=== PATIENT | female | born 1985 | race Caucasian/White ===

== ENCOUNTER → 2018-03-02 | Outpatient (CLI) | payer OTHER ==
--- NOTE | 2018-03-14 15:49 | EKG ---
[facility] [address] [place] [address] Test Date: 2018-03-02 Test Time: 13:32:57 Pat Name: SAMIR VICENTE Department: Room: Gender: Rail Car Driver: : 1985 Requested By: JACQUELINE SILVA Order Number: [id number] Reading MD: Constantino Avalos Interpretive Statements Patient was in sinus rhythm with heart rate ranging from 61 bpm to 150 bpm with an average of 93 bpm. Very few supraventricular and ventricular ectopic beats noted accounting to less than 1% of total number of beats. No significant arrhythmias were seen. CONCLUSIONS Holter monitor did not show any significant arrhythmias. Electronically Signed On 03-14-2018 16:02:15 [employer] by Constantino Avalos
== END | disposition home or self-care (01) ==
LOC: EKG 15:11
PROVIDERS: ATTEND Family Medicine
DX: I49.3 Ventricular premature depolarization (principal)
CPT/HCPCS: 93225; 93226